=== PATIENT | female | born 1990 | race African-American/Black ===

== ENCOUNTER 2019-03-17 11:23 | Emergency (ER) | payer MEDICAID ==
[2019-03-17] MEDS ORDERED: Acetaminophen 500 MG TAB ONE (12:00)
[2019-03-17 12:13] LABS: Bilirubin Negative (Negative); Blood, Urine Negative (Negative); Clarity Clear (Clear); Glucose, Urine (Dipstick) Negative (Negative); Leukocyte Negative (Negative); Nitrite Negative (Negative); Protein, Urine (Dipstick) Negative (Neg-Trace)
[2019-03-17 12:24] LABS: #Basophils 0.1 thou/uL (0.0-0.2); #Eosinphils 0.1 thou/uL (0.0-0.7); #Lymphocytes 1.7 thou/uL (1.20-3.40); #Monocytes 0.6 thou/uL (0.11-0.59); #Neutrophils 6.6 thou/uL (1.40-6.50); %Basophils 1.2 % (0.0-1.0); %Eosinophils 1.3 % (0.0-10.0); %Lymphocytes 18.5 % (21.0-51.0); Mean Corpuscular HGB CONC 32.4 g/dL (32.0-36.0); Mean Corpuscular Hemoglobin 26.8 pg (27.0-31.0); Mean Corpuscular Volume 82.7 fL (78.0-98.0); Platelet Count 353 thou/uL (130-400); RBC Distribution Width 13.3 % (11.5-14.5); Red Blood Cell (RBC) Count 4.48 mill/uL (4.20-5.40); White Blood Cell (WBC) Count 9.2 thou/uL (4.8-10.8)
--- NOTE | 2019-03-17 12:27 | ULT ---
Limited Obstetrical Ultrasound INDICATION: Fall with pelvic cramping TECHNIQUE: Grayscale, M-mode Doppler, color Doppler and spectral Doppler images were obtained. COMPARISON: None. FINDINGS: Number of gestations: Single. Presentation: Transverse. Placental location: Posterior in location without evidence of previa. There is a 1.2 x 1.5 x 1.6 cm s uspect a subchorionic hemorrhage along the superior margin of the placenta. Previa: No evidence for previa. Cervical length: Not demonstrated SAURABH: Not recorded. cm. heart rate: 141 bpm. 160 Biparietal diameter: 1.68cm, 12 weeks 4 days, 36th percentile. Head circumference: 6.57 cm, 20 weeks 4 days, 33rd percentile Abdominal circumference: 5.04 cm, 12 weeks 0 days, 58th percentile Femoral length: 0.57cm, not calculated, 25th percentile Estimated weight: Not estimated g +/- not applicableg not applicable, not applicable The average gestational age by ultrasound is 12 weeks 2 dayswith estimated due date of September 27, 2019. The estimated dates by clinical data is 12 weeks 1 daywith estimated due date of September 28, 2019. IMPRESSION: 1. Single live intrauterine gestation with size and dates as above. 2. Small subchorionic hemorrhage seen along the superior margin of the posterior placenta. Continued clinical and sonographic follow-up is recommended.
[2019-03-17 12:31] LABS: ALT (SGPT) 13 U/L (8-55); AST (SGOT) 15 U/L (5-34); Alkaline Phosphatase 66 U/L (40-150); Anion Gap 11 mmol/L (10-20); BUN (Urea Nitrogen) 8 mg/dL (7.0-18.7); Bilirubin, Total 0.7 mg/dL (0.2-1.2); Calc. Creatinine Clearance 0 mL/min (70-130); Calcium 9.3 mg/dL (7.8-10.44); Carbon Dioxide 24 mmol/L (22-29); Chloride 105 mmol/L (98-107); Estimated GFR-MDRD Greater than 90; Globulin 3.5 g/dL (2.4-3.5); Glucose 73 mg/dL (70-105); Potassium 3.4 mmol/L (3.5-5.1); Protein, Total 7.5 g/dL (6.0-8.3); Sodium 137 mmol/L (136-145)
== END 2019-03-17 12:43 | disposition home or self-care (01) ==
LOC: SCSER 11:23
DX: O99.89 Other specified diseases and conditions complicating pregnancy, childbirth and the puerperium (principal); R10.9 Unspecified abdominal pain; R51 Headache; O20.8 Other hemorrhage in early pregnancy; W10.9XXA Fall (on) (from) unspecified stairs and steps, initial encounter; Z3A.12 12 weeks gestation of pregnancy
CPT/HCPCS: 76815; 80053; 81003; 84702; 85025